=== PATIENT | female | born 1970 | race Caucasian/White ===

== ENCOUNTER → 2016-07-26 | Outpatient (CLI) | payer BC ==
[2016-07-26 20:39] LABS: ALT 42 U/L (9-52); AST 31 U/L (14-36); Alkaline Phosphatase 107 U/L (38-126); Bilirubin, Delta 0.4 mg/dL (0.0-0.2); Total Bilirubin 0.6 mg/dL (0.2-1.3); Total Protein 7.5 g/dL (6.3-8.2)
[2016-07-26 21:10] LABS: Hepatitis B Surface Ag Index 0.16
[2016-07-26 21:16] LABS: Hepatitis B Core IgM Index 0.02
[2016-07-26 21:27] LABS: Hepatitis C Virus IgG Index 0.03
[2016-07-26 21:57] LABS: Prealbumin 17 mg/dL (18-36)
[2016-07-29 13:27] LABS: Hepatitis C Virus IgG Ab Negative (Negative)
[2016-07-29 19:01] LABS: Selenium 130 mcg/L (63-160)
== END | disposition home or self-care (01) ==
LOC: LABMAIN 19:49
PROVIDERS: ATTEND Family Medicine
DX: K76.0 Fatty (change of) liver, not elsewhere classified (principal); Z98.84 Bariatric surgery status
CPT/HCPCS: 36415; 80074; 80076; 82306; 82495; 83690; 84134; 84255; 84590; 84630

== ENCOUNTER → 2016-07-29 | Outpatient (CLI) | payer BC ==
[2016-07-29 12:41] VITALS: BP 117/72; PULSE 70; TEMP 98.3; BMI 31.3
--- NOTE | 2016-09-06 07:08 | PN ---
DATE OF SERVICE: 07/29/2016 CHIEF COMPLAINT: Abdominal pain. HISTORY OF PRESENT ILLNESS: Tori Murphy is a 45-year-old female who has a personal history of Adrian-en-Y gastric bypass at an outside institution over 5+ years ago. For her height of 5 feet 6 inches, her ideal body weight is 154 pounds. Highest weight was 265 pounds. Today she comes in weighing 193 pounds. She has now maintained a 72-pound weight loss. Percent excess weight loss 64%. Body mass index reduced from 42.9 down to 31.3. Since her last evaluation a year ago she has lost another 12 pounds. Total BMI point reduction is 11.6. She also reports having change in her dietary intake including have her thyroid medication under control. She also reports having elevated liver enzymes for which an ultrasound of the gallbladder has been obtained. She also reports having pancreatitis as a result. Now she presents for further evaluation and management. PAST MEDICAL HISTORY: Epigastric abdominal pain. MEDICATIONS: 1. Glucophage. 2. [place] thyroid. 3. Centrum complete. 4. Feosol. 5. Vitamin D. 6. Vitamin B12. 7. Tramadol. 8. [place]. 9. [place]. REVIEW OF ORGAN SYSTEMS: CONSTITUTIONAL: [place] body weight of 154 pounds. Original weight of 265 pounds. Present weight of 193 pounds. 72 pounds of weight loss. A 64% excess weight loss. Body mass index is reduced from 42.9 down to 31.3. She is only 39 pounds overweight. ENDOCRINE: History of diabetes type 2 including thyroid disorder. GASTROINTESTINAL: Has previous history of pancreatitis and elevated liver enzymes. PHYSICAL EXAM: VITAL SIGNS: 98.3, 70, 16, 117/72, 5 feet 6 inches, 193 pounds. Body mass index is 31.3. ABDOMEN: Soft, mild tenderness along the right upper quadrant. No gross peritoneal signs. No palpable incisional hernias. LABS: Hepatitis panel was negative. Total bilirubin was normal. Prealbumin was low at 17. Vitamin A was low at 32. Vitamin D was within normal limits. Selenium and zinc were within normal limits. STUDIES: Pending. ASSESSMENT: 1. Morbid obesity due to excess calories. 2. Body mass index reduced from 42.9 down to 31.3. 3. Previous history of elevated liver enzymes. 4. Right upper quadrant abdominal pain. 5. Previous history of pancreatitis. PLAN: 1. With her symptoms this is highly suspicious of gallstone induced pancreatitis. 2. Recommend ultrasound of the gallbladder. 3. With her history of moderate weight loss including Adrian-en-Y gastric bypass, gallstones is very common as a result of I recommend a laparoscopic cholecystectomy. 4. Deep venous thrombosis prophylaxis. 5. Antibiotic prophylaxis. ADDENDUM: Abdominal ultrasound was reviewed. Gallbladder ultrasound was consistent with mild fatty infiltration. As the patient continues to have persistent symptoms of right upper quadrant abdominal pain including clinical cholecystitis, she has elected for laparoscopic cholecystectomy.
== END | disposition home or self-care (01) ==
LOC: BARWHC3 10:31
PROVIDERS: ATTEND Surgery Plastic and Reconstructive Surgery
DX: R10.11 Right upper quadrant pain (principal); E66.01 Morbid (severe) obesity due to excess calories; Z68.31 Body mass index [BMI] 31.0-31.9, adult; Z79.899 Other long term (current) drug therapy; E11.9 Type 2 diabetes mellitus without complications; E07.9 Disorder of thyroid, unspecified; Z98.84 Bariatric surgery status; Z79.84 Long term (current) use of oral hypoglycemic drugs
CPT/HCPCS: 99211

== ENCOUNTER → 2016-07-29 | Outpatient (CLI) | payer BC ==
--- NOTE | 2016-07-29 14:37 | US ---
EXAMINATION TYPE: US abdomen complete DATE OF EXAM: 07/29/2016 2:29 PM COMPARISON: NONE CLINICAL HISTORY: Fatty Liver K76.0. HH, Gastric bypass surgery 2010 per patient; patient stated has been on ketogenic diet last several weeks. EXAM MEASUREMENTS: Liver Length: 18.8 cm Gallbladder Wall: 0.2 cm CBD: 0.5 cm Spleen: 10.8 cm Right Kidney: 11.5 x 6.5 x 4.3 cm Left Kidney: 12.4 x 5.4 x 5.9 cm Pancreas: wnl, tail is gassed out Liver: coarse and heterogeneous appearance Gallbladder: wnl Evidence for sonographic Farfan's sign: No CBD: wnl Spleen: wnl Right Kidney: wnl Left Kidney: wnl Upper IVC: wnl Abd Aorta: wnl IMPRESSION: 1. Mild fatty infiltration liver
== END | disposition home or self-care (01) ==
LOC: RADUSWWP 13:44
PROVIDERS: ATTEND Family Medicine
DX: K76.0 Fatty (change of) liver, not elsewhere classified (principal)
CPT/HCPCS: 76700

== ENCOUNTER 2016-08-05 10:09 | Day surgery (SDC) | payer BC ==
[2016-08-01 14:35] VITALS: BMI 30.7
--- NOTE | 2016-08-05 08:09 | P.GSHP ---
History of Present Illness H&P Date: 08/05/16 CHIEF COMPLAINT: Cholecystitis HISTORY OF PRESENT ILLNESS: The patient is a 45-year-old female who presents with history of epigastric including right upper quadrant abdominal pain. She underwent diagnostic studies for her gallbladder. Separately her clinical picture was consistent with cholecystitis. Now she presents for surgical intervention. PAST MEDICAL HISTORY: Please see list PAST SURGICAL HISTORY: Please see list MEDICATIONS: Please see list ALLERGIES: Denies. SOCIAL HISTORY: No illicit drug use or recent tobacco use FAMILY HISTORY: Pertinent for gallbladder disease REVIEW OF ORGAN SYSTEMS: CONSTITUTIONAL: No reports of fevers or chills. HEENT: Denies any troubles with the vision or hearing. RESPIRATORY: No recent pneumonias. CARDIOVASCULAR: Denies chest pain or palpitations GI: No blood in stools or constipation. MUSCULOSKELETAL: Has occasional joint pain including back pain. PHYSICAL EXAM: VITAL SIGNS: Afebrile vital signs stable GENERAL: Well-developed pleasant in no acute distress. HEENT: No scleral icterus. Extraocular movements grossly intact. Moist buccal mucosa. NECK: Supple without lymphadenopathy. CHEST: Unlabored respirations. Equal bilateral excursions. CARDIOVASCULAR: Regular rate regular rhythm rhythm. Distal 2+ pulses. ABDOMEN: Soft, nondistended. Tender along the epigastrium and right upper quadrant. MUSCULOSKELETAL: No clubbing, cyanosis, or edema. NEURO: Cranial nerves II to XII within normal limits. No focal or lateralizing signs. PSYCH: Alert and oriented to person, place and time. ASSESSMENT: 1. Epigastric and right upper quadrant abdominal pain 2. Chronic cholecystitis PLAN: 1. Will need cholecystectomy possible open. Benefits and risks were described. Robotic assisted laparoscopic approach technique reviewed. 2. Heparin for DVT prophylaxis 5000 units. 3. Antibiotic prophylaxis. Past Medical History Past Medical History: Diabetes Mellitus, Fibromyalgia, Osteoarthritis (OA), Thyroid Disorder Additional Past Medical History / Comment(s): Some numbness and tingling in fingers/toes and limbs with shooting pains that are relieved with chiropractor visit. Hx intestinal ulcer. History of Any Multi-Drug Resistant Organisms: None Reported Past Surgical History: Bariatric Surgery, Uterine Ablation Additional Past Surgical History / Comment(s): CONSTANTINO-EN-Y, EGD. Past Anesthesia/Blood Transfusion Reactions: No Reported Reaction Past Psychological History: Anxiety, Depression Smoking Status: Former smoker Past Alcohol Use History: Rare Additional Past Alcohol Use History / Comment(s): STARTED SMOKING AT AGE 17 QUIT SMOKING AT AGE 22 SMOKED 3/4 PPD Past Drug Use History: None Reported - Past Family History Father Family Medical History: Congestive Heart Failure (CHF), CVA/TIA, Diabetes Mellitus, Hyperlipidemia, Hypertension, Thyroid Disorder Mother Family Medical History: Coronary Artery Disease (CAD), CVA/TIA, Diabetes Mellitus, Hyperlipidemia, Hypertension, Thyroid Disorder Medications and Allergies Home Medications Medication Instructions Recorded Confirmed Type Multivitamin/Iron/Folic Acid 1 tab PO DAILY 06/10/15 08/01/16 History [Centrum Complete Multivit Tab] Thyroid,Pork [[place] Thyroid] 180 mg PO QAM 06/10/15 08/01/16 History Cyanocobalamin (Vitamin B-12) 5,000 mcg PO DAILY 09/16/15 08/01/16 History [Vitamin B12] Ferrous Sulfate [Feosol] 325 mg PO DAILY 09/16/15 08/01/16 History metFORMIN HCL [Glucophage] 500 mg PO TID 09/16/15 08/01/16 History Doxepin [SINEquan] 10 mg PO HS 08/01/16 08/01/16 History traMADol HCL [Conzip] 100 mg PO DAILY PRN 08/01/16 08/01/16 History Allergies Allergy/AdvReac Type Severity Reaction Status Date / Time No Known Allergies Allergy Verified 08/01/16 14:18
[~2016-08-05 10:09] MED LIST: ACETAMINOPHEN IV (For NPO) 1,000 MG in EMPTY BAG 1 BAG IVPB ONE; DEXAMETHASONE SOD PHOSPHATE 10 MG/ML 1 ML VIAL IV ONE; HEPARIN SODIUM,PORCINE 5,000 UNIT/ML 1 ML VIAL SQ ONE; MIDAZOLAM 2 MG/2 ML VIAL IV PRN; ONDANSETRON 4 MG/2 ML VIAL IVP ONE; SCOPOLAMINE 1.5MG/72HR PATCH TRANSDERM ONE; ceFAZolin 2 GM in SODIUM CHLORIDE 0.9% 100 ML IVPB ONE
[2016-08-05 12:45] LABS: Glucose,Whole Blood 95 mg/dL (75-99)
[2016-08-05] MEDS: LACTATED RINGERS 1,000 ML IV SCH ×2 (13:01→13:03)
[2016-08-05] MEDS ORDERED: BUPIVACAIN-EPI 0.25%-1:200,000 30 ML VIAL SQ ONE (15:14)
[2016-08-05] MEDS ORDERED: MIDAZOLAM 2 MG/2 ML VIAL ONE (15:17)
[2016-08-05] MEDS ORDERED: PROPOFOL 10 MG/ML 20 ML VIAL IV ONE (15:17)
[2016-08-05] MEDS ORDERED: PHENYLEPHRINE-0.9% NACL SYG 1 MG/10 ML SYRINGE ONE (15:17)
[2016-08-05] MEDS ORDERED: GLYCOPYRROLATE 0.2 MG/ML 2 ML VIAL ONE (15:17)
[2016-08-05] MEDS ORDERED: HYDROmorphone (PF) 1 MG/ML ONE (15:17)
[2016-08-05] MEDS ORDERED: SUCCINYLCHOLINE CHLORIDE 100 MG/5 ML SYR IV ONE (15:17)
[2016-08-05] MEDS ORDERED: ROCURONIUM BROMIDE 10 MG/ML 10 ML VIAL IV ONE (15:17)
[2016-08-05] MEDS ORDERED: LIDOCAINE 1% INJ 10MG/ML (20 ML MDV) ONE (15:17)
[2016-08-05] MEDS ORDERED: fentaNYL (PF) 50 MCG/ML 2 ML AMP ONE (15:17)
[2016-08-05] MEDS ORDERED: NEOSTIGMINE 1 MG/ML 10 ML VIAL ONE (15:17)
[2016-08-05] MEDS ORDERED: HYDROcodone/APAP 5-325MG 1 EACH TAB PO PRN (16:49)
[2016-08-05] MEDS ORDERED: NALOXONE 0.4 MG/ML 1 ML VIAL IV PRN (16:49)
[2016-08-05] MEDS ORDERED: ONDANSETRON 4 MG/2 ML VIAL IVP PRN (16:49)
[2016-08-05 17:05] LABS: Glucose,Whole Blood 193 mg/dL (75-99)
[2016-08-05] MEDS ORDERED: ONDANSETRON 4 MG/2 ML VIAL IVP ONE (17:08)
[2016-08-05 17:09] VITALS: TEMP 98.5
[2016-08-05] MEDS: HYDROmorphone 1 MG/ML 1 ML SYRINGE IVP PRN ×2 (17:12→17:17)
[2016-08-05] MEDS ORDERED: KETOROLAC 30 MG/ML 1 ML VIAL IVP ONE (17:21)
[2016-08-05 17:46] VITALS: RESP 16
[2016-08-05 18:35] VITALS: PULSE 74
[2016-08-05] MEDS ORDERED: HYDROcodone/APAP 5-325MG 1 EACH TAB PO ONE (18:41)
--- NOTE | 2016-08-05 18:53 | P.OP ---
Date of Procedure: 08/05/16 Preoperative Diagnosis: Postoperative Diagnosis: Procedure(s) Performed: Implants: Indications for Procedure: Operative Findings: Description of Procedure: SURGEON: LASHAE RIVERA MD ZINC FURNACE CHARGER: 1. Olive Sandoval 2. Mark Lenz PREOPERATIVE DIAGNOSES: 1. Chronic cholecystitis. 2. Diabetes type 2, controlled. 3. History of gastric bypass. 4. Hypothyroidism. 5. Epigastric abdominal pain.. 6. Obesity, BMI 30.7. POSTOPERATIVE DIAGNOSES: 1. Chronic cholecystitis. 2. Diabetes type 2, controlled. 3. History of gastric bypass. 4. Hypothyroidism. 5. Epigastric abdominal pain.. 6. Obesity, BMI 30.7. OPERATION: Robotic-assisted laparoscopic cholecystectomy, multiport ESTIMATED BLOOD LOSS: 1 mL. SPECIMENS REMOVED: Gallbladder. COMPLICATIONS: None. OPERATIVE FINDINGS: 1. Gallbladder wall thickening consistent with chronic cholecystitis. INDICATIONS: The patient is a 45-year-old female who presents with chronic cholelcystitis. Surgical intervention with a laparoscopic cholecystectomy was described at length including injury to the biliary tree, bleeding, infection, need for further surgery. Informed consent was obtained. Robotic assisted laparoscopic approach was described. Benefits and risks of the procedure including but not limited to bleeding, infection, injury to the biliary tree was described. Informed consent was obtained. DESCRIPTION OF PROCEDURE: Patient was brought to the operating room, placed in supine position. After general induction, the abdomen had been prepped and draped in standard sterile fashion. The robotic da Zhang SI system was primed. After a timeout protocol was performed, the patient had been prepped and draped in standard sterile fashion. The robot was docked along the right lateral abdomen. The patient was repositioned in reverse Trendelenburg position. Please note prior to docking of the robot; however, a 5 mm 0 degrees laparoscopic trocar entry was performed along the left upper quadrant. Next, two 8 mm robotic ports were placed along the right upper abdomen. The camera 12-mm port was maintained along the epigastrium. Another 8 mm port was placed along the left upper abdominal wall after exchanging the 5 mm port. Please note that the ports were placed at least 20 cm away from the target anatomy of the gallbladder. Using a grasper for arm 3, a grasper for arm 2, including hook cautery for arm 1 , the robotic system was docked and primed as described. Instruments were interchanged by the certified ophthalmic assistant including hook cautery, Bovie cautery and large clip appliers. I had sat at the console. The gallbladder fundus was retracted over the dome of the liver. Initial attention was brought to the infundibulum which was gently retracted in the inferior lateral approach. Using hook cautery, the cystic duct including the cystic artery was carefully skeletonized. Using a large clip field assembly supervisor, 2 clips were placed proximally, and 2 clip was placed distally along the cystic duct and then divided with cautery. Care was taken to avoid any injury to the biliary tree as the common bile duct was clearly visualized during this portion of dissection. Next, the cystic artery was clipped twice proximally, once distally and then cauterized. Electro-Bovie cautery was used to remove the gallbladder from the hepatic fossa without decompression of the gallbladder. Hemostasis was checked and found to be adequate. The robot was undocked. I re-scrubbed into the case. Using a 10 mm Endo Catch bag via the 12 mm port, the specimen was removed from the abdominal cavity. The 12 mm port site was oversewn using 0 Vicryl including a Mahesh Mueller as well. All pneumoperitoneum instruments were evacuated from the abdominal cavity. The incisions were reapproximated using 4-0 Monocryl in an interrupted subcuticular fashion. Please note along the trocar sites, local anesthetic was placed as a field block prior to insertion of all instruments. Dermabond was applied to the skin. At the end of the procedure needle, sponge, and instrument count had been verified correct by the construction technician. The patient was transferred to postanesthesia care unit in stable condition. Plan - Discharge Summary New Discharge Prescriptions: Hydrocodone/Acetaminophen [[place] 5-325] 1 - 2 each PO Q6HR PRN #60 tab PRN Reason: Pain Discharge Medication List Multivitamin/Iron/Folic Acid [Centrum Complete Multivit Tab] 1 tab PO DAILY [History] Thyroid,Pork [[place] Thyroid] 180 mg PO QAM 06/10/15 [History] Ergocalciferol [Vitamin D2 (DRISDOL)] 50,000 unit PO Q7D #12 cap 06/17/15 [Rx] Cyanocobalamin (Vitamin B-12) [Vitamin B12] 5,000 mcg PO DAILY 09/16/15 [History ] Ferrous Sulfate [Feosol] 325 mg PO DAILY 09/16/15 [History] metFORMIN HCL [Glucophage] 500 mg PO TID 09/16/15 [History] Doxepin [SINEquan] 10 mg PO HS 08/01/16 [History] traMADol HCL [Conzip] 100 mg PO DAILY PRN 08/01/16 [History] Hydrocodone/Acetaminophen [[place] 5-325] 1 - 2 each PO Q6HR PRN #60 tab 08/05/16 [Rx] Follow up Appointment(s)/Referral(s): Lashae Rivera MD [STAFF PHYSICIAN] - 08/12/16 (bariatric center) Patient Instructions/Handouts: *Surgery [facility] - (Anesthesia) Discharge Instructions Outpatient Surgery, *Surgery [facility] - Scopalamine Patch Instructions, Laparoscopic Cholecystectomy (DC) Activity/Diet/Wound Care/Special Instructions: No lifting over 4 lbs in 2 weeks. May shower. No bathtub soaks. Discharge Disposition: HOME SELF-CARE
[2016-08-05 19:24] VITALS: BP 115/63
== END 2016-08-05 19:51 | disposition home or self-care (01) ==
LOC: OR 10:09
PROVIDERS: ATTEND Surgery Plastic and Reconstructive Surgery
DX: K81.1 Chronic cholecystitis (principal); E66.9 Obesity, unspecified; Z68.30 Body mass index [BMI] 30.0-30.9, adult; E11.9 Type 2 diabetes mellitus without complications; Z79.84 Long term (current) use of oral hypoglycemic drugs; Z98.84 Bariatric surgery status; E03.9 Hypothyroidism, unspecified; Z87.891 Personal history of nicotine dependence; M79.7 Fibromyalgia; M19.90 Unspecified osteoarthritis, unspecified site; Z79.899 Other long term (current) drug therapy
CPT/HCPCS: 47562; S2900; 81025; 88304

== ENCOUNTER → 2016-08-11 | Outpatient (CLI) | payer BC ==
[2016-08-11 11:11] VITALS: BP 119/83; PULSE 94; RESP 14; TEMP 98.1; BMI 29.7
--- NOTE | 2016-09-10 18:57 | P.PN ---
Progress Note - Text DATE OF SERVICE: 08/11/2016 CHIEF COMPLAINT: Status post cholecystectomy. HISTORY OF PRESENT ILLNESS: Tori Murphy is a 45-year-old female who has a personal history of Adrian-en-Y gastric bypass at an outside institution over 5+ years ago. For her height of 5 feet 6 inches, her ideal body weight is 154 pounds. Highest weight was 295 pounds. Today she comes in weighing 184 pounds. She has now maintained a 111-pound weight loss. Percent excess weight loss is 79%. Body mass index reduced from 47.7 down to 29.7. Within the last 2 weeks, she presented with epigastric including right upper quadrant abdominal pain. She also has history of elevated liver enzymes and pancreatitis. She is now status post cholecystectomy as a result. She reports that her abdominal pain had improved. She has lost another 10 pounds in 2 weeks. PHYSICAL EXAM: VITAL SIGNS: 5 feet 6 inches, 184 pounds. Body mass index is 29.7. Vital Signs Temp 98.1 F 08/11/16 11:08 Pulse 94 08/11/16 11:08 Resp 14 08/11/16 11:08 BP 119/83 08/11/16 11:08 Pulse Ox ABDOMEN: Soft, incisions clean, dry, and intact with Dermabond. No palpable incisional hernias. GENERAL: Well-developed female in no acute distress. HEENT: Extraocular movements grossly intact. Moist buccal mucosa. No nasal drainage. Hears conversational speech. Head is atraumatic normocephalic. Neck is supple without lymphadenopathy. CHEST: Nonlabored respirations with equal bilateral excursions. CARDIOVASCULAR: Regular rate and rhythm. MUSCULOSKELETAL: No clubbing, cyanosis, or edema. NEURO: No focal or lateralizing signs. PSYCH: Appropriate affect. Alert and oriented to person, place and time. ASSESSMENT: 1. Morbid obesity due to excess caloric intake. 2. Body mass index reduced from 47.7 down to 29.7. 3. Status post Adrian-en-Y gastric bypass. 4. Right upper quadrant abdominal pain, now resolved. 5. Status post cholecystectomy. 6. Panniculitis. PLAN: 1. She is doing well. Follow-up as needed. 2. She has history of panniculitis. Recommend panniculectomy.
== END | disposition home or self-care (01) ==
LOC: BARWHC3 10:25
PROVIDERS: ATTEND Surgery Plastic and Reconstructive Surgery
DX: Z09 Encounter for follow-up examination after completed treatment for conditions other than malignant neoplasm (principal); E66.01 Morbid (severe) obesity due to excess calories; M79.3 Panniculitis, unspecified; Z68.29 Body mass index [BMI] 29.0-29.9, adult; Z98.84 Bariatric surgery status; Z90.49 Acquired absence of other specified parts of digestive tract
CPT/HCPCS: 99211

== ENCOUNTER → 2017-08-23 | Outpatient (CLI) | payer BC ==
--- NOTE | 2017-08-24 13:44 | MM ---
Reason for exam: screening (asymptomatic). History: Patient is postmenopausal. Physical Findings: A clinical breast exam by your physician is recommended on an annual basis and results should be correlated with mammographic findings. MG 3D Screening Mammo W/Cad Bilateral CC and MLO view(s) were taken. The breast tissue is heterogeneously dense. This may lower the sensitivity of mammography. No suspicious abnormality in the right breast. 3mm lateral left asymmetry at middle depth. ASSESSMENT: Incomplete: need additional imaging evaluation, BI-RAD 0 RECOMMENDATION: Special view mammogram and ultrasound of the left breast. (area of pain) [facility] will attempt to contact patient to return for supplemental views and ultrasound.
== END | disposition home or self-care (01) ==
LOC: RADMAMWWP 16:55
PROVIDERS: ATTEND Family Medicine
DX: Z12.31 Encounter for screening mammogram for malignant neoplasm of breast (principal)
CPT/HCPCS: 77063; 77067

== ENCOUNTER → 2017-08-25 | Outpatient (CLI) | payer BC ==
--- NOTE | 2017-08-25 11:50 | MM ---
Reason for exam: additional evaluation requested from abnormal screening. Last mammogram was performed less than 1 month ago. History: Patient is postmenopausal. Physical Findings: Nurse did not find any significant physical abnormalities on exam. MG 3D Work Up W/Cad LT Spot compression CC, spot compression MLO, and ML view(s) were taken of the left breast. Prior study comparison: August 23, 2017, bilateral MG 3d screening mammo w/cad. The breast tissue is heterogeneously dense. This may lower the sensitivity of mammography. The previously seen small 3mm mass upper outer quadrant on the left appears less conspicuous on additional views. Precautionary ultrasound will be done. These results were verbally communicated with the patient and result sheet given to the patient on 08/25/17. ASSESSMENT: Incomplete: need additional imaging evaluation, BI-RAD 0 RECOMMENDATION: Ultrasound of the left breast. (upper outer quadrant/pain)
--- NOTE | 2017-08-25 11:51 | USB ---
Reason for exam: additional evaluation requested from abnormal screening. History: Patient is postmenopausal. US Breast Workup Limited LT Left limited breast ultrasound including focal area of concern, retroareolar and axilla demonstrates a 3 x 2 x 3mm oval, cystic lesion at 2 o'clock and a 7 x 3 x 6mm ova, cystic lesion with septation at 3 o'clock. Corresponds to mammographic findings. These results were verbally communicated with the patient and result sheet given to the patient on 08/25/17. ASSESSMENT: Benign, BI-RAD 2 RECOMMENDATION: Return to routine screening mammogram schedule for both breasts.
== END | disposition home or self-care (01) ==
LOC: RADMAMWWP 09:47
PROVIDERS: ATTEND Family Medicine
DX: R92.8 Other abnormal and inconclusive findings on diagnostic imaging of breast (principal)
CPT/HCPCS: 77061; 77065

== ENCOUNTER → 2018-07-06 | Outpatient (CLI) | payer BC ==
--- NOTE | 2018-07-06 13:39 | CT ---
EXAMINATION TYPE: CT hip RT wo con DATE OF EXAM: 07/06/2018 COMPARISON: None HISTORY: Abnormal findings on diagnostic imaging of limbs CT DLP: 566 mGycm Automated exposure control for dose reduction was used. Unenhanced CT of the right hip was performed with bone and soft tissue window settings submitted. FINDINGS: I do not see evidence for an acute fracture or dislocation. No bony lesion is identified. Well-cortic ated loose body is noted measuring 1 cm adjacent to and superior to the right acetabulum. No addition al loose bodies identified. No evidence for soft tissue mass. Pelvic phleboliths noted. IMPRESSION: LOOSE BODY NOTED. OTHERWISE UNREMARKABLE STUDY.
== END ==
LOC: RADCTMAIN 12:35
PROVIDERS: ATTEND Family Medicine
DX: M24.051 Loose body in right hip (principal)

== ENCOUNTER → 2018-08-24 | Outpatient (CLI) | payer BC ==
--- NOTE | 2018-08-27 11:46 | MM ---
Reason for exam: screening (asymptomatic). Last mammogram was performed 1 year ago. History: Patient is postmenopausal. Physical Findings: A clinical breast exam by your physician is recommended on an annual basis and results should be correlated with mammographic findings. MG 3D Screening Mammo W/Cad Bilateral CC and MLO view(s) were taken. Prior study comparison: August 25, 2017, left breast MG 3d work up w/cad LT. August 23, 2017, bilateral MG 3d screening mammo w/cad. The breast tissue is heterogeneously dense. This may lower the sensitivity of mammography. There are benign appearing round calcifications bilaterally. There is chronic nodularity in the left breast. There is no discrete abnormality. ASSESSMENT: Benign, BI-RAD 2 RECOMMENDATION: Routine screening mammogram of both breasts in 1 year.
== END | disposition home or self-care (01) ==
LOC: RADMAMWWP 12:59
PROVIDERS: ATTEND Family Medicine
DX: Z12.31 Encounter for screening mammogram for malignant neoplasm of breast (principal)
CPT/HCPCS: 77063; 77067

== ENCOUNTER 2020-05-20 18:08 | Emergency (ER) | payer BC ==
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
[2020-05-20 22:24] VITALS: RESP 18
[2020-05-20 22:30] VITALS: BP 152/74; PULSE 98; TEMP 98.4
== END 2020-05-20 22:24 | disposition home or self-care (01) ==
LOC: EC 18:08
DX: S01.81XA Laceration without foreign body of other part of head, initial encounter (principal); F41.9 Anxiety disorder, unspecified; F32.9 Major depressive disorder, single episode, unspecified; E11.9 Type 2 diabetes mellitus without complications; M19.90 Unspecified osteoarthritis, unspecified site; Z79.84 Long term (current) use of oral hypoglycemic drugs; X58.XXXA Exposure to other specified factors, initial encounter
CPT/HCPCS: 70450; 70486; 72125; 99283

== ENCOUNTER → 2021-04-12 | Outpatient (CLI) | payer BC ==
--- NOTE | 2021-04-13 08:27 | MM ---
Reason for exam: screening (asymptomatic). Last mammogram was performed 2 years and 8 months ago. History: Patient is postmenopausal. Physical Findings: Nurse did not find any significant physical abnormalities on exam. MG 3D Screening Mammo W/Cad Bilateral CC and MLO view(s) were taken. Prior study comparison: August 24, 2018, bilateral MG 3d screening mammo w/cad. August 25, 2017, left breast MG 3d work up w/cad LT. The breast tissue is heterogeneously dense. This may lower the sensitivity of mammography. There are benign appearing round calcifications bilaterally. There is no discrete abnormality. ASSESSMENT: Benign, BI-RAD 2 RECOMMENDATION: Routine screening mammogram of both breasts in 1 year.
== END | disposition home or self-care (01) ==
LOC: RADMAMWWP 10:04
PROVIDERS: ATTEND Family Medicine
DX: Z12.31 Encounter for screening mammogram for malignant neoplasm of breast (principal); Z78.0 Asymptomatic menopausal state
CPT/HCPCS: 77063; 77067

== ENCOUNTER → 2021-11-26 | Outpatient (CLI) | payer OTHER, BC ==
[2021-11-26 18:00] LABS: African American GFR (CKD) >90 (>60 ml/min/1.73 sqM); Blood Urea Nitrogen 13 mg/dL (7-17); Non-African American GFR(CKD) >90 (>60 ml/min/1.73 sqM)
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
== END | disposition home or self-care (01) ==
LOC: RADCTMAIN 16:57
PROVIDERS: ATTEND Family Medicine
DX: M50.323 Other cervical disc degeneration at C6-C7 level (principal)
CPT/HCPCS: 82565; 84520; 72125; 70470; 36415; Q9967

== ENCOUNTER → 2022-06-22 | Outpatient (CLI) | payer BC ==
--- NOTE | 2022-06-23 08:41 | MM ---
Reason for Exam: Screening (asymptomatic). Last mammogram was performed 1 year(s) and 3 month(s) ago. Patient History: Menarche at age 14. First Full-Term at age 20. Postmenopausal. Risk Values: [place] 5 year model risk: 0.7%. NCI Lifetime model risk: 6.5%. Prior Study Comparison: 08/25/2017 Left Diagnostic Mammogram, [facility]. 08/24/2018 Bilateral Screening Mammogram, [facility]. 04/12/2021 Bilateral Screening Mammogram, [facility]. Tissue Density: The breast tissue is heterogeneously dense. This may lower the sensitivity of mammography. Findings: Analyzed By CAD. There is no suspicious group of microcalcifications or new suspicious mass in either breast. Overall Assessment: Negative, BI-RAD 1 Management: Screening Mammogram of both breasts in 1 year. A clinical breast exam by your physician is recommended on an annual basis and results should be correlated with mammographic findings. Electronically signed and approved by: Daniel Nichols M.D. Radiologis
== END | disposition home or self-care (01) ==
LOC: RADMAMWWP 16:10
PROVIDERS: ATTEND Obstetrics & Gynecology
DX: Z12.31 Encounter for screening mammogram for malignant neoplasm of breast (principal); Z78.0 Asymptomatic menopausal state
CPT/HCPCS: 77063; 77067

== ENCOUNTER 2022-07-04 22:52 | Emergency (ER) | payer BC ==
[2022-07-04 23:12] VITALS: TEMP 97.6
[2022-07-05 01:07] VITALS: PULSE 78
[2022-07-05 01:22] LABS: Basophils # (A) 0.1 k/uL (0-0.2); Basophils % (A) 1 %; Eosinophils # (A) 0.2 k/uL (0-0.7); Eosinophils % (A) 3 %; HCT 41.5 % (34.0-46.0); HGB 12.9 gm/dL (11.4-16.0); Lymphocytes # (A) 3.7 k/uL (1.0-4.8); Lymphocytes % (A) 46 %; MCH 27.7 pg (25.0-35.0); MCHC 31.1 g/dL (31.0-37.0); MCV 89.1 fL (80.0-100.0); Mean Platelet Volume 10.3; Monocytes # (A) 0.6 k/uL (0-1.0); Monocytes % (A) 8 %; Neutrophils % (A) 38 %; Platelet Count 248 k/uL (150-450); RBC 4.66 m/uL (3.80-5.40); WBC 7.9 k/uL (3.8-10.6)
[2022-07-05 01:30] LABS: ALT 57 U/L (4-34); AST 46 U/L (14-36); African American GFR (CKD) >90 (>60 ml/min/1.73 sqM); Albumin 4.2 g/dL (3.5-5.0); Alkaline Phosphatase 109 U/L (38-126); Anion Gap 5 mmol/L; Blood Urea Nitrogen 11 mg/dL (7-17); Calcium 8.9 mg/dL (8.4-10.2); Carbon Dioxide 30 mmol/L (22-30); Chloride 102 mmol/L (98-107); Glucose 158 mg/dL (74-99); Magnesium 1.9 mg/dL (1.6-2.3); Non-African American GFR(CKD) >90 (>60 ml/min/1.73 sqM); Potassium 4.5 mmol/L (3.5-5.1); Sodium 137 mmol/L (137-145); Total Bilirubin 0.3 mg/dL (0.2-1.3); Total Protein 7.4 g/dL (6.3-8.2)
[2022-07-05 02:49] VITALS: BP 113/78; RESP 14
[2022-07-05 03:11] LABS: Appearance,Urine Clear (Clear); Bilirubin,Urine Negative (Negative); Blood,Urine Negative (Negative); Color,Urine Colorless; Glucose,Urine (UA) Negative (Negative); Ketones,Urine Negative (Negative); Leukocyte Esterase,Urine Negative (Negative); Nitrite,Urine Negative (Negative); PH, Urine 6.5 (5.0-8.0); Protein,Urine Negative (Negative); Specific Gravity,Urine 1.001 (1.001-1.035); Urobilinogen,Urine <2.0 mg/dL (<2.0)
--- NOTE | 2022-07-05 03:32 | ED ---
General Adult HPI - General Chief complaint: Dizziness Stated complaint: Dizziness, Heart Palpitations, HBP Time Seen by Provider: 07/05/22 00:27 Source: patient Mode of arrival: ambulatory Limitations: no limitations - History of Present Illness Initial comments: This patient is a 51-year-old woman who presents with complaint that she is not feeling like her usual self going on for number days to weeks. The patient states she is having some generalized weakness. She states she often feels lightheaded or dizzy , especially when she first gets up from a seated position when she first gets up. He has not noted any focal weakness. She is not desc ribing vertiginous symptoms. There are no symptoms at rest. No chest pain or dyspnea. The patient does note that she has recently tried a number of new [id number] supplements. She states she also has been trying to get into see her physician and have her thyroid rechecked but they've not been able to see her. Onset/Timin -: week(s) Location: head Severity scale (1-10): 0 Consistency: intermittent Improves with: none Worsens with: movement Associated Symptoms: denies other symptoms Treatments Prior to Arrival: none - Related Data Home Medications Medication Instructions Recorded Confirmed Multivitamin/Iron/Folic Acid 1 tab PO DAILY 06/10/15 08/11/16 [Centrum Complete Multivit Tab] Thyroid,Pork [[place] Thyroid] 180 mg PO QAM 06/10/15 08/11/16 Cyanocobalamin (Vitamin B-12) 5,000 mcg PO DAILY 09/16/15 08/11/16 [Vitamin B12] Ferrous Sulfate [Feosol] 325 mg PO DAILY 09/16/15 08/11/16 metFORMIN HCL [Glucophage] 500 mg PO TID 09/16/15 08/11/16 Doxepin [SINEquan] 10 mg PO HS 08/01/16 08/11/16 traMADol HCL [Conzip] 100 mg PO DAILY PRN 08/01/16 08/11/16 Previous Rx's Medication Instructions Recorded Ergocalciferol [Vitamin D2 50,000 unit PO Q7D #12 cap 06/17/15 (DRISDOL)] Hydrocodone/Acetaminophen [[place] 1 - 2 each PO Q6HR PRN #60 tab 08/05/16 5-325] Allergies Allergy/AdvReac Type Severity Reaction Status Date / Time No Known Allergies Allergy Verified 05/20/20 18:17 Review of Systems ROS Statement: Those systems with pertinent positive or pertinent negative responses have been documented in the HPI. ROS Other: All systems not noted in ROS Statement are negative. Constitutional: Reports: weakness. Denies: fever, chills Eyes: Denies: vision change ENT: Denies: ear pain, congestion Respiratory: Denies: cough, dyspnea Cardiovascular: Denies: chest pain, palpitations, syncope Endocrine: Reports: fatigue Gastrointestinal: Denies: abdominal pain, nausea, vomiting Genitourinary: Denies: dysuria, hematuria Musculoskeletal: Denies: back pain Neurological: Denies: headache, weakness, numbness Past Medical History Past Medical History: Diabetes Mellitus, Fibromyalgia, Osteoarthritis (OA), Thyroid Disorder Additional Past Medical History / Comment(s): Some numbness and tingling in fingers/toes and limbs with shooting pains that are relieved with chiropractor visit. Hx intestinal ulcer. History of Any Multi-Drug Resistant Organisms: None Reported Past Surgical History: Bariatric Surgery, Cholecystectomy, Uterine Ablation Additional Past Surgical History / Comment(s): CONSTANTINO-EN-Y, EGD., cholecystectomy 08/05/16, Past Anesthesia/Blood Transfusion Reactions: No Reported Reaction Past Psychological History: Anxiety, Depression Smoking Status: Never smoker Past Alcohol Use History: Rare Past Drug Use History: None Reported - Past Family History Father Family Medical History: Congestive Heart Failure (CHF), CVA/TIA, Diabetes Mellitus, Hyperlipidemia, Hypertension, Thyroid Disorder Mother Family Medical History: Coronary Artery Disease (CAD), CVA/TIA, Diabetes Mellitus, Hyperlipidemia, Hypertension, Thyroid Disorder General Exam Limitations: no limitations General appearance: alert, in no apparent distress Head exam: Present: atraumatic, normocephalic Eye exam: Present: normal appearance. Absent: scleral icterus, conjunctival injection ENT exam: Present: normal oropharynx Neck exam: Present: normal inspection Respiratory exam: Present: normal lung sounds bilaterally. Absent: respiratory distress, wheezes, rales, rhonchi, stridor Cardiovascular Exam: Present: regular rate, normal rhythm, normal heart sounds. Absent: systolic murmur, diastolic murmur, rubs, gallop GI/Abdominal exam: Present: soft. Absent: distended, tenderness, guarding, rebound, rigid, mass Extremities exam: Present: normal inspection, normal capillary refill. Absent: pedal edema, calf tenderness Back exam: Present: normal inspection. Absent: CVA tenderness (R), CVA tenderness (L) Neurological exam: Present: alert, CN II-XII intact. Absent: motor sensory deficit Skin exam: Present: warm, dry, intact, normal color. Absent: rash Course Vital Signs 07/04/22 07/05/22 07/05/22 23:06 00:58 02:49 Temperature 97.6 F Pulse Rate 75 78 Pulse Rate [ 78 Apical] Respiratory 16 14 Rate Blood Pressure 166/79 113/78 O2 Sat by Pulse 100 98 Oximetry Medical Decision Making - Medical Decision Making This patient is 51-year-old woman presenting with some fatigue, generalized weakness, and it sounds mostly like postural hypotension. The workup here is unremarkable other than the patient's TSH level is high and she is therefore directed to follow with her physician and/or endocrinology about increasing thyroid medications. We discussed appropriate further care and follow-up as well as return parameters. Was pt. sent in by a medical professional or institution (, PA, GUN FERTILIZER, urgent care, hospital, or custodial...) When possible be specific @ -[No] Did you speak to anyone other than the patient for history (EMS, parent, family, police, friend...)? What history was obtained from this source @ -[No] Did you review nursing and triage notes (agree or disagree)? Why? @ -[I reviewed and agree with nursing and triage notes] Were old charts reviewed (outside hosp., previous admission, EMS record, old EKG, old radiological studies, urgent care reports/EKG's, custodial records)? Report findings @ -[No old charts were reviewed] Differential Diagnosis (chest pain, altered mental status, abdominal pain women, abdominal pain men, vaginal bleeding, weakness, fever, dyspnea, syncope, h eadache, dizziness, GI bleed, back pain, seizure, CVA, palpatations, mental health, musculoskeletal)? @ -[Differential Dizziness: Benign paroxysmal positional Vertigo, Menieres disease, otitis media, acoustic neuroma, vertebrobasilar insufficiency, cerebellar stroke, encephalitis, hypovolemic, arrhythmia, coronary artery syndrome, anemia, this is not meant to be an all-inclusive list EKG interpreted by me (3pts min.). @ -[As above] X-rays interpreted by me (1pt min.). @ -[ CT interpreted by me (1pt min.). @ -[None done] U/S interpreted by me (1pt. min.). @ -[None done] What testing was considered but not performed or refused? (CT, X-rays, U/S, labs)? Why? @ -[None] What meds were considered but not given or refused? Why? @ -[None] Did you discuss the management of the patient with other professionals (professionals i.e. , PA, GUN FERTILIZER, lab, RT, psych nurse, social worker health services, lumber stacker driver, teacher, consumer loan officer, case management associate)? Give summary @ -[No] Was smoking cessation discussed for >3mins.? @ -[No] Was critical care preformed (if so, how long)? @ -[No] Were there social determinants of health that impacted care today? How? (Homelessness, low income, unemployed, alcoholism, drug addiction, transportation, low edu. Level, literacy, decrease access to med. care, fci, rehab)? @ -[No] Was there de-escalation of care discussed even if they declined (Discuss DNR or withdrawal of care, Hospice)? DNR status @ -[No] What co-morbidities impacted this encounter? (DM, HTN, Smoking, COPD, CAD, Cancer, CVA, ARF, Chemo, Hep., AIDS, mental health diagnosis, sleep apnea, morbid obesity)? @ -[None] Was patient admitted / discharged? Hospital course, mention meds given and route, prescriptions, significant lab abnormalities, going to OR and other pertinent info. @ -[Discharged Undiagnosed new problem with uncertain prognosis? @ -[No] Drug Therapy requiring intensive monitoring for toxicity (Heparin, Nitro, Insulin, Cardizem)? @ -[No] Were any procedures done? @ -[No] Diagnosis/symptom? @ -[Hypothyroidism, suspect acute on chronic Acute, or Chronic, or Acute on Chronic? @ -[default] Uncomplicated (without systemic symptoms) or Complicated (systemic symptoms)? @ -[Uncomplicated Side effects of treatment? @ -[No] Exacerbation, Progression, or Severe Exacerbation? @ -[No] Poses a threat to life or bodily function? How? (Chest pain, [place], [place], pneumonia, PE, COPD, DKA, ARF, appy, cholecystitis, CVA, Diverticulitis, Homicidal, Suicidal, threat to staff... and all critical care pts) @ -[No] - Lab Data Result diagrams: 07/05/22 01:07 07/05/22 01:07 Lab Results 07/05/22 07/05/22 07/05/22 Range/Units 01:07 01:07 01:07 WBC 7.9 (3.8-10.6) k/uL RBC 4.66 (3.80-5.40) m/uL Hgb 12.9 (11.4-16.0) gm/dL Hct 41.5 (34.0-46.0) % MCV 89.1 (80.0-100.0) fL MCH 27.7 (25.0-35.0) pg MCHC 31.1 (31.0-37.0) g/dL RDW 15.0 (11.5-15.5) % Plt Count 248 (150-450) k/uL MPV 10.3 Neutrophils % 38 % Lymphocytes % 46 % Monocytes % 8 % Eosinophils % 3 % Basophils % 1 % Neutrophils # 3.0 (1.3-7.7) k/uL Lymphocytes # 3.7 (1.0-4.8) k/uL Monocytes # 0.6 (0-1.0) k/uL Eosinophils # 0.2 (0-0.7) k/uL Basophils # 0.1 (0-0.2) k/uL Sodium 137 (137-145) mmol/L Potassium 4.5 (3.5-5.1) mmol/L Chloride 102 (98-107) mmol/L Carbon Dioxide 30 (22-30) mmol/L Anion Gap 5 mmol/L BUN 11 (7-17) mg/dL Creatinine 0.47 L (0.52-1.04) mg/dL Est GFR (CKD-EPI)AfAm >90 (>60 ml/min/1.73 sqM) Est GFR (CKD-EPI)NonAf >90 (>60 ml/min/1.73 sqM) Glucose 158 H (74-99) mg/dL POC Glucose (mg/dL) (70-110) mg/dL POC Glu Refractory Tile Helper ID Calcium 8.9 (8.4-10.2) mg/dL Magnesium 1.9 (1.6-2.3) mg/dL Total Bilirubin 0.3 (0.2-1.3) mg/dL AST 46 H (14-36) U/L ALT 57 H (4-34) U/L Alkaline Phosphatase 109 (38-126) U/L Troponin I 0.020 (0.000-0.034) ng/mL Total Protein 7.4 (6.3-8.2) g/dL Albumin 4.2 (3.5-5.0) g/dL TSH 12.600 H (0.465-4.680) mIU/L Urine Color Urine Appearance (Clear) Urine pH (5.0-8.0) Ur Specific [place] (1.001-1.035) Urine Protein (Negative) Urine Glucose (UA) (Negative) Urine Ketones (Negative) Urine Blood (Negative) Urine Nitrite (Negative) Urine Bilirubin (Negative) Urine Urobilinogen (<2.0) mg/dL Ur Leukocyte Esterase (Negative) Urine HCG, Qual (Not Detectd) 07/05/22 07/05/22 07/05/22 Range/Units 02:46 02:46 03:48 WBC (3.8-10.6) k/uL RBC (3.80-5.40) m/uL Hgb (11.4-16.0) gm/dL Hct (34.0-46.0) % MCV (80.0-100.0) fL MCH (25.0-35.0) pg MCHC (31.0-37.0) g/dL RDW (11.5-15.5) % Plt Count (150-450) k/uL MPV Neutrophils % % Lymphocytes % % Monocytes % % Eosinophils % % Basophils % % Neutrophils # (1.3-7.7) k/uL Lymphocytes # (1.0-4.8) k/uL Monocytes # (0-1.0) k/uL Eosinophils # (0-0.7) k/uL Basophils # (0-0.2) k/uL Sodium (137-145) mmol/L Potassium (3.5-5.1) mmol/L Chloride (98-107) mmol/L Carbon Dioxide (22-30) mmol/L Anion Gap mmol/L BUN (7-17) mg/dL Creatinine (0.52-1.04) mg/dL Est GFR (CKD-EPI)AfAm (>60 ml/min/1.73 sqM) Est GFR (CKD-EPI)NonAf (>60 ml/min/1.73 sqM) Glucose (74-99) mg/dL POC Glucose (mg/dL) 81 (70-110) mg/dL POC Glu Refractory Tile Helper ID Karen Stevenson Calcium (8.4-10.2) mg/dL Magnesium (1.6-2.3) mg/dL Total Bilirubin (0.2-1.3) mg/dL AST (14-36) U/L ALT (4-34) U/L Alkaline Phosphatase (38-126) U/L Troponin I (0.000-0.034) ng/mL Total Protein (6.3-8.2) g/dL Albumin (3.5-5.0) g/dL TSH (0.465-4.680) mIU/L Urine Color Colorless Urine Appearance Clear (Clear) Urine pH 6.5 (5.0-8.0) Ur Specific [place] 1.001 (1.001-1.035) Urine Protein Negative (Negative) Urine Glucose (UA) Negative (Negative) Urine Ketones Negative (Negative) Urine Blood Negative (Negative) Urine Nitrite Negative (Negative) Urine Bilirubin Negative (Negative) Urine Urobilinogen <2.0 (<2.0) mg/dL Ur Leukocyte Esterase Negative (Negative) Urine HCG, Qual Not Detected (Not Detectd) Disposition Clinical Impression: Hypothyroid Disposition: HOME SELF-CARE Condition: Good Instructions (If sedation given, give patient instructions): Hypothyroidism (ED) Is patient prescribed a controlled substance at d/c from ED?: No Referrals: Nazanin Del Valle MD [Primary Care Provider] - 1-2 days
[2022-07-05 03:49] LABS: Glucose,Whole Blood 81 mg/dL (70-110)
== END 2022-07-05 03:53 | disposition home or self-care (01) ==
LOC: EC 22:52
DX: E03.9 Hypothyroidism, unspecified (principal); E11.9 Type 2 diabetes mellitus without complications; F32.A Depression, unspecified; F41.9 Anxiety disorder, unspecified; Z79.890 Hormone replacement therapy; Z79.84 Long term (current) use of oral hypoglycemic drugs; Z79.899 Other long term (current) drug therapy
CPT/HCPCS: 36415; 80053; 81003; 81025; 83735; 84443; 84484; 85025; 93005; 99284

== ENCOUNTER → 2022-07-19 | Outpatient (CLI) | payer BC ==
--- NOTE | 2022-07-20 09:37 | CA ---
Transthoracic Echo Report Name: Tori Murphy Age: 51 Gender: F : 1970 Exam Date: 07/19/2022 11:12 Exam Location: [facility] Ht (in): 66 Wt (lb): 169 Ordering Physician: Nazanin Del Valle MD Attending/Referring Phys: Tar Heat Exchanger Cleaner Preethi Joseph RDCS Procedure CPT: Indications: R00.2 palpitations Cardiac Hx: Technical Quality: Fair Contrast 1: Total Dose (mL): Contrast 2: Total Dose (mL): MEASUREMENTS (Male / Female) Normal Values 2D ECHO LV Diastolic Diameter PLAX 3.7 cm 4.2 - 5.9 / 3.9 - 5.3 cm LV Systolic Diameter PLAX 2.2 cm IVS Diastolic Thickness 1.0 cm 0.6 - 1.0 / 0.6 - 0.9 cm LVPW Diastolic Thickness 1.1 cm 0.6 - 1.0 / 0.6 - 0.9 cm LV Relative Wall Thickness 0.5 RV Internal Dim ED PLAX 3.5 cm LA Volume 60.1 cm??? 18 - 58 / 22 - 52 cm??? M-MODE Aortic Root Diameter MM 2.6 cm LA Systolic Diameter MM 3.9 cm LA Ao Ratio MM 1.5 AV Cusp Separation MM 1.9 cm DOPPLER AV Peak Velocity 139.0 cm/s AV Peak Gradient 7.7 mmHg AV Mean Velocity 95.5 cm/s AV Mean Gradient 4.0 mmHg AV Velocity Time Integral 31.6 cm LVOT Peak Velocity 134.3 cm/s LVOT Peak Gradient 7.2 mmHg LVOT Velocity Time Integral 30.9 cm MV Area PHT 3.8 cm??? Mitral E Point Velocity 120.4 cm/s Mitral A Point Velocity 69.0 cm/s Mitral E to A Ratio 1.7 MV Deceleration Time 197.2 ms MV E' Velocity 7.3 cm/s Mitral E to MV E' Ratio 16.4 TR Peak Velocity 218.1 cm/s TR Peak Gradient 19.0 mmHg Right Ventricular Systolic Press 24.0 mmHg FINDINGS Left Ventricle Mildly increased left ventricular wall thickness. Left ventricular cavity size normal. Normal left ventricular systolic function with no obvious regional wall motion abnormalities. Left ventricular ejection fraction is estimated at 55-60 %. Right Ventricle Normal right ventricular size and function. Right ventricular systolic pressure within normal limits. Right Atrium Normal right atrial size. Left Atrium Mildly increased left atrial volume. Mildly increased left atrial area. Mitral Valve Structurally normal mitral valve. No mitral stenosis. Mild mitral regurgitation. Aortic Valve Trileaflet aortic valve. No aortic valve stenosis or regurgitation. Tricuspid Valve Structurally normal tricuspid valve. Mild tricuspid regurgitation. Pulmonic Valve Structurally normal pulmonic valve. Trace pulmonic regurgitation. Pericardium Minimal pericardial effusion (normal variant). Aorta Normal size aortic root and proximal ascending aorta. CONCLUSIONS Mildly increased left ventricular wall thickness Left ventricular ejection fraction 55-60% Mildly dilated left atrium Mild mitral regurgitation Mild tricuspid regurgitation Trace pericardial effusion Previewed by: Dr. Edgar Calix DO (Electronically Signed) Final Date: 20 Jul 2022 09:36
== END | disposition home or self-care (01) ==
LOC: RADECHMAIN 10:01
PROVIDERS: ATTEND Family Medicine
DX: I08.1 Rheumatic disorders of both mitral and tricuspid valves (principal); I31.39 Other pericardial effusion (noninflammatory); R00.2 Palpitations
CPT/HCPCS: 93306

== ENCOUNTER → 2022-07-28 | Outpatient (CLI) | payer BC ==
--- NOTE | 2022-08-16 12:01 | CE ---
CARDIAC ELECTROPHYSIOLOGY REPORT STUDY PERFORMED: 14 days event monitor. FINDINGS: The patient was monitored for 14 days. The baseline rhythm appeared to be sinus mechanism. The patient did have multiple episodes of paroxysmal atrial tachycardia. I could not appreciate any atrial fibrillation or atrial flutter. No advanced AV block noted. No significant bradycardia noted. No sinus pause or sinus arrest. CONCLUSION: 1. This is a 14-day event monitor. 2. The patient did have multiple episodes of paroxysmal atrial tachycardia. MMODL / IJN: [id number] /
== END | disposition home or self-care (01) ==
LOC: RADECHMAIN 12:36
PROVIDERS: ATTEND Family Medicine
DX: I47.1 Supraventricular tachycardia (principal); R00.2 Palpitations
CPT/HCPCS: 93270

== ENCOUNTER → 2022-09-19 | Outpatient (CLI) | payer BC ==
--- NOTE | 2022-09-19 17:05 | CA ---
Transthoracic Echo Report Name: Tori Murphy Age: 51 Gender: F : 1970 Exam Date: 09/19/2022 14:10 Exam Location: [place] [facility] Ht (in): 66 Wt (lb): 167 Ordering Physician: Nazanin Del Valle MD Attending/Referring Phys: Rig Hand Yanique Merlos [facility] Procedure CPT: Indications: I31.39 OTHER PERICARDIAL EFFUSION (NONINFLAMMATORY Cardiac Hx: Technical Quality: Fair Contrast 1: Total Dose (mL): Contrast 2: Total Dose (mL): MEASUREMENTS (Male / Female) Normal Values 2D ECHO LV Diastolic Diameter PLAX 4.1 cm 4.2 - 5.9 / 3.9 - 5.3 cm LV Systolic Diameter PLAX 2.9 cm IVS Diastolic Thickness 0.9 cm 0.6 - 1.0 / 0.6 - 0.9 cm DOPPLER Mitral E Point Velocity 83.1 cm/s Mitral A Point Velocity 60.5 cm/s Mitral E to A Ratio 1.4 MV Deceleration Time 147.1 ms LV E' Lateral Velocity 12.6 cm/s Mitral E to LV E' Lateral Ratio 6.6 LV E' Septal Velocity 12.1 cm/s Mitral E to LV E' Septal Ratio 6.9 Right Atrial Pressure 3.0 mmHg FINDINGS Left Ventricle Normal Left ventricular size, wall thickness, systolic function with no obvious regional wall motion abnormalities. Normal left ventricular diastolic filling pattern. Left ventricular ejection fraction is estimated at 55-60%. Right Ventricle Right Atrium Left Atrium Mitral Valve Structurally normal mitral valve. Trace mitral regurgitation. Aortic Valve Tricuspid Valve Pulmonic Valve Structurally normal pulmonic valve. Moderate pulmonic regurgitation. Pericardium Minimal pericardial effusion (normal variant). Aorta CONCLUSIONS Normal LV systolic function Previewed by: Dr. Adan Wyman MD (Electronically Signed) Final Date: 19 September 2022 17:04
== END | disposition home or self-care (01) ==
LOC: RADECHMAIN 13:56
PROVIDERS: ATTEND Family Medicine
DX: I34.0 Nonrheumatic mitral (valve) insufficiency (principal); I37.1 Nonrheumatic pulmonary valve insufficiency; I31.39 Other pericardial effusion (noninflammatory)
CPT/HCPCS: 93308

== ENCOUNTER 2023-07-20 09:34 | Day surgery (SDC) | payer BC ==
[2023-07-17 16:51] VITALS: BMI 29.0
[2023-07-20 10:15] LABS: Glucose,Whole Blood 108 mg/dL (70-110)
[2023-07-20] MEDS ORDERED: LACTATED RINGERS 1,000 ML IV SCH (10:15)
[2023-07-20 10:40] VITALS: TEMP 98.2
[2023-07-20] MEDS ORDERED: ROPIVACAINE 5MG/ML 20ML VIAL ONE (10:44)
[2023-07-20] MEDS ORDERED: IOPAMIDOL M200 10 ML VIAL ONE (10:44)
[2023-07-20] MEDS ORDERED: TRIAMCINOLONE ACETONIDE 40 MG/ML 1 ML VIAL ONE (10:44)
--- NOTE | 2023-07-20 10:51 | P.PCN ---
Date of Procedure: 07/20/23 Description of Procedure: Preoperative diagnoses: 1. Right hip osteoarthritis Postoperative diagnoses: 1. Right hip osteoporosis Procedure: Right hip intra-articular steroid injection with fluoroscopy Anesthesia: 3ml 1% Lidocaine Description of the procedure: Patient was seen and identified in the preoperative holding area, risk and benefits, complications ,and alternatives of the procedure were discussed with the patient and patient agreed with the preceding, patient signed the consent and IV was started and vital signs were monitored throughout the procedure and it was stable. The patient was taken to the operating room and placed in supine position the groin area was prepped with chlorhexidine 3 and draped with the standard fashion. Local anesthetic was used with lidocaine 1% then using 25 -gauge needle, under direct fluoroscopy and anterior posterior image of the hip joint was ascertained. A 22-gauge Quincke needle was then advanced to the femoral neck until contact with bone was made. After negative aspiration for blood, 1 mL of Omnipaque was then injected to confirm placement of needle into the joint capsule. Once correct position was confirmed and after negative aspiration for blood, a solution consisting of 5 ML's of 0.5% Ropivacaine with 40 mg/1 mL of Kenalog was administered. A washout image was then obtained to confirm adequate spread within the joint capsule. Needle was removed, and a Band-Aid was placed. Patient tolerated procedure well with no complications Disposition: We'll see patient in clinic in 4 weeks' time to assess efficacy of right hip injection as her source of right leg pain
--- NOTE | 2023-07-20 10:57 | FL ---
EXAMINATION TYPE: FL guided pain mgmt statistic Intraoperative/procedural fluoroscopic services were provided. Total fluoroscopy time is 3.4 seconds with a total of 2 submitted images to PACS. Please se e the operative/procedural note for further details. DAP: [id number] mGym2
[2023-07-20 11:25] VITALS: BP 132/83; PULSE 78; RESP 18
== END 2023-07-20 11:09 | disposition home or self-care (01) ==
LOC: ORPAIN 09:34
PROVIDERS: ATTEND Anesthesiology
DX: M16.11 Unilateral primary osteoarthritis, right hip (principal); E11.9 Type 2 diabetes mellitus without complications; Z79.1 Long term (current) use of non-steroidal anti-inflammatories (NSAID)
CPT/HCPCS: 81025; 20610; 77002; J3301; Q9966; J2795

== ENCOUNTER → 2024-01-22 | Outpatient (CLI) | payer BC ==
--- NOTE | 2024-01-24 22:39 | US ---
EXAMINATION TYPE: US thyroid st tissue head/neck DATE OF EXAM: 01/22/2024 COMPARISON: NONE CLINICAL INDICATION: Female, 53 years old with history of E03.9 HYPOTHYROIDISM; hypothyroidism. Pt jimenez s been on thyroid medication for years TECHNIQUE: Grayscale and color Doppler imaging of the thyroid gland. FINDINGS: GLAND SIZE: Right Lobe: 3.3 x 0.9 x 0.7 cm Overall Parenchyma: homogeneous Left Lobe: 2.8 x 1.0 x 0.5 cm Overall Parenchyma: homogeneous Isthmus Thickness: 0.1 cm NODULES RIGHT: # of nodules measured on right: 0 LEFT: # of nodules measured on left: 0 ISTHMUS: # of nodules measured in the isthmus: 0 Bilateral neck scanned, no evidence of lymphadenopathy. IMPRESSION: Suspicious thyroid nodules. 2017 ACR TI-RADS LEVEL: TR-RADS 1 - BENIGN: No FNA *Highest TI-RADS level nodule reported [email or web address] [facility], , 01/24/2024 10:37 PM
== END | disposition home or self-care (01) ==
LOC: RADUSWWP 15:22
PROVIDERS: ATTEND Family Medicine
DX: E03.9 Hypothyroidism, unspecified (principal)
CPT/HCPCS: 76536

== ENCOUNTER → 2024-01-31 | Outpatient (CLI) | payer BC ==
[2024-01-31 17:19] VITALS: BP 122/73; PULSE 75; RESP 16; TEMP 98.2
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
== END ==
LOC: BARWHC3 16:08
PROVIDERS: ATTEND Surgery Plastic and Reconstructive Surgery
DX: E66.01 Morbid (severe) obesity due to excess calories (principal); Z87.891 Personal history of nicotine dependence; Z98.84 Bariatric surgery status; Z68.22 Body mass index [BMI] 22.0-22.9, adult
CPT/HCPCS: 99211

== ENCOUNTER → 2024-02-27 | Outpatient (CLI) | payer BC ==
[2024-02-28 01:44] LABS: HCT 43.9 % (37.2-46.3); HGB 13.6 g/dL (12.0-15.0); MCH 27.7 pg (27.0-32.0); MCV 89.4 FL (80.0-97.0); Mean Platelet Volume 13.2 FL (9.5-12.2); NRBC Per 100 WBC 0 X 10*3/uL (0.00-0.01); Platelet Count 313 X 10*3/uL (140-440); RBC 4.91 X 10*6/uL (4.10-5.20); RDW 14.3 % (11.5-14.5); WBC 8.23 X 10*3/uL (4.50-10.00)
[2024-02-28 02:28] LABS: INR 0.99 sec (0.93-1.11); Prothrombin Time 11.1 sec (9.9-11.9)
[2024-02-28 02:54] LABS: Prealbumin 19.4 mg/dL (18.0-42.0)
[2024-02-28 03:28] LABS: % Iron Saturation 21.26 (12.00-45.00); ALT 55 U/L (8-44); AST 70 U/L (13-35); Albumin 4.5 g/dL (3.8-4.9); Albumin/Globulin Ratio 1.61 Ratio (1.60-3.17); Alkaline Phosphatase 136 U/L (41-126); Blood Urea Nitrogen 14.4 mg/dL (9.0-27.0); Calcium 9.6 mg/dL (8.7-10.3); Carbon Dioxide 26.2 mmol/L (21.6-31.8); Chloride 101 mmol/L (96-109); Chol/HDL Ratio 2.37 Ratio; Ferritin 30.6 ng/mL (10.0-291.0); Globulin 2.8 g/dL (1.6-3.3); Glucose 94 mg/dL (70-110); Iron 108 UG/DL (50-170); LDL Cholesterol,Calculated 99.6 mg/dL (0.0-131.0); Phosphorus 4.4 mg/dL (2.4-5.1); Potassium 4.9 mmol/L (3.5-5.5); Sodium 141 mmol/L (135-145); Total Bilirubin 0.4 mg/dL (0.3-1.2); Total Iron Binding Capacity 508 UG/DL (228-460); Total Protein 7.3 g/dL (6.2-8.2); VLDL Calculation 14.96 mg/dL (5.00-40.00)
[2024-02-28 13:39] LABS: Vitamin A 46 ug/dL (38-106)
[2024-02-28 15:15] LABS: Zinc, Serum 103 ug/dL (60-130)
[2024-02-29 08:05] LABS: Vit B1(Thiamine) 63 ug/L (38-122)
== END | disposition home or self-care (01) ==
LOC: LABWHC1 16:01
PROVIDERS: ATTEND Surgery Plastic and Reconstructive Surgery
DX: E66.01 Morbid (severe) obesity due to excess calories (principal); E89.1 Postprocedural hypoinsulinemia; D50.8 Other iron deficiency anemias; K91.2 Postsurgical malabsorption, not elsewhere classified; E44.0 Moderate protein-calorie malnutrition; E44.1 Mild protein-calorie malnutrition; E45 Retarded development following protein-calorie malnutrition; E55.9 Vitamin D deficiency, unspecified; K74.1 Hepatic sclerosis; N19 Unspecified kidney failure; T56.894A Toxic effect of other metals, undetermined, initial encounter
CPT/HCPCS: 36415; 80053; 80061; 82306; 82525; 82607; 82728; 82746; 83036; 83540; 83550; 83735; 83970; 84100; 84134; 84255; 84425; 84443; 84590; 84630; 85027; 85610; 85730

== ENCOUNTER → 2024-02-27 | Outpatient (CLI) | payer BC ==
--- NOTE | 2024-02-29 08:38 | MM ---
Reason for Exam: Screening (asymptomatic). Last mammogram was performed 1 year(s) and 8 month(s) ago. Patient History: Menarche at age 14. First Full-Term at age 20. Postmenopausal. Risk Values: Shaina 5 year model risk: 0.8%. NCI Lifetime model risk: 6.3%. Prior Study Comparison: 08/24/2018 Bilateral Screening Mammogram, [facility]. 04/12/2021 Bilateral Screening Mammogram, [facility]. 06/22/2022 Bilateral MG 3D screening mammo w/cad, [facility]. Tissue Density: The breasts are heterogeneously dense, which may obscure small masses. Findings: Analyzed By CAD. There is no suspicious group of microcalcifications or new suspicious mass in either breast. Overall Assessment: Benign, BI-RAD 2 Management: Screening Mammogram of both breasts in 1 year. . Patient should continue monthly self-breast exams. A clinical breast exam by your physician is recommended on an annual basis. This exam should not preclude additional follow-up of suspicious palpable abnormalities. Note on Shaina scores and lifetime risk: 1. A Shaina score greater than 3% is considered moderate risk. If this is the case, consider specialist referral to assess eligibility for a risk reducing agent. 2. If overall lifetime risk for the development of breast cancer is 20% or higher, the patient may qualify for future screening with alternating mammogram and breast MRI. [facility], , 02/29/2024 8:36 AM. Electronically signed and approved by: Daniel Nichols M.D. Radiologis
== END | disposition home or self-care (01) ==
LOC: RADMAMWWP 15:36
PROVIDERS: ATTEND Family Medicine
DX: Z12.31 Encounter for screening mammogram for malignant neoplasm of breast (principal); R92.333 Mammographic heterogeneous density, bilateral breasts; Z78.0 Asymptomatic menopausal state
CPT/HCPCS: 77063; 77067

== ENCOUNTER → 2024-03-15 | Outpatient (CLI) | payer BC | END | disposition home or self-care (01) | LOC: LABWHC1 14:41 | PROVIDERS: ATTEND Surgery Plastic and Reconstructive Surgery | DX: Z00.00 Encounter for general adult medical examination without abnormal findings (principal) | CPT/HCPCS: 36415; 85730 ==

== ENCOUNTER 2024-05-30 16:43 | Emergency (ER) | payer BC ==
--- NOTE | 2024-05-30 17:45 | XR ---
EXAMINATION TYPE: XR chest 2V DATE OF EXAM: 05/30/2024 5:40 PM COMPARISON: None. CLINICAL INDICATION: Female, 53 years old with history of Cough: Shortness of breath TECHNIQUE: XR chest 2V views of the chest are obtained. FINDINGS: Scattered senescent parenchymal changes noted. Hyperinflation compatible with COPD. No evidence for infiltrate. No evidence for atelectasis. Heart size is stable. Mediastinal structures are stable and grossly unremarkable. No evidence for hilar prominence. Degenerative changes dorsal spine. IMPRESSION: 1. No evidence for acute pulmonary disease. [facility], , 05/30/2024 5:42 PM
[2024-05-30 18:35] LABS: HCT 40.1 % (34.0-46.0); HGB 12.9 gm/dL (11.4-16.0); MCH 27.7 pg (25.0-35.0); MCHC 32.3 g/dL (31.0-37.0); MCV 85.9 fL (80.0-100.0); Platelet Count 197 k/uL (150-450); RBC 4.67 m/uL (3.80-5.40); RDW 14.3 % (11.5-15.5); WBC 3.4 k/uL (3.8-10.6)
[2024-05-30] MEDS: IBUPROFEN 800 MG TAB PO STA (18:48)
[2024-05-30 18:50] LABS: ALT 70 U/L (4-34); AST 87 U/L (14-36); African American GFR (CKD) >90 (>60 ml/min/1.73 sqM); Albumin 4.1 g/dL (3.5-5.0); Alkaline Phosphatase 96 U/L (38-126); Amylase 76 U/L (30-110); Anion Gap 11 mmol/L; Blood Urea Nitrogen 9 mg/dL (7-17); Calcium 8.3 mg/dL (8.4-10.2); Carbon Dioxide 26 mmol/L (22-30); Chloride 101 mmol/L (98-107); Glucose 110 mg/dL (74-99); Lipase 163 U/L (23-300); Non-African American GFR(CKD) >90 (>60 ml/min/1.73 sqM); Potassium 3.8 mmol/L (3.5-5.1); Sodium 138 mmol/L (137-145); Total Bilirubin 0.5 mg/dL (0.2-1.3)
[2024-05-30] MEDS: ACETAMINOPHEN TAB 500 MG TAB PO STA (18:52)
[2024-05-30] MEDS: SODIUM CHLORIDE 0.9% 1,000 ML IV ONE (18:53)
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
[2024-05-30 19:02] LABS: Appearance,Urine Clear (Clear); Bilirubin,Urine Negative (Negative); Blood,Urine Negative (Negative); Color,Urine Colorless; Glucose,Urine (UA) Negative (Negative); Ketones,Urine Negative (Negative); Leukocyte Esterase,Urine Negative (Negative); Nitrite,Urine Negative (Negative); Protein,Urine Negative (Negative); Specific Gravity,Urine 1.002 (1.001-1.035); Urobilinogen,Urine <2.0 mg/dL (<2.0)
[2024-05-30 19:08] LABS: Influenza A Detected (Not Detectd); Influenza B Not Detected (Not Detectd); RSV Not Detected (Not Detectd)
[2024-05-30 19:40] LABS: Lymphocytes # (M) 0.99 k/uL (1.0-4.8); Monocytes # (M) 0.31 k/uL (0-1.0); Neutrophils # (M) 2.11 k/uL (1.3-7.7); Neutrophils % (M) 62 %; Nucleated Red Blood Cells 0 /100 WBC (0-0); RBC Morphology Normal; Total Cells Counted 100
[2024-05-30 19:45] VITALS: RESP 19
[2024-05-30] MEDS ORDERED: IBUPROFEN IV 400 MG in SODIUM CHLORIDE 0.9% 100 ML IV ONE (19:45)
[2024-05-30] MEDS: IBUPROFEN IV 400 MG in SODIUM CHLORIDE 0.9% 250 ML IV ONE (20:21)
--- NOTE | 2024-05-30 21:45 | CT ---
EXAMINATION TYPE: CT abdomen pelvis wo con DATE OF EXAM: 05/30/2024 9:36 PM COMPARISON: 07/05/2025 CLINICAL INDICATION: Female, 53 years old with history of Abdominal pain, acute, nonlocalized, ABD PA IN TECHNIQUE: Axial images with sagittal coronal reformats. Examination of the solid and hollow viscera is limited given the lack of contrast. CT DLP: 635 mGycm, Automated exposure control for dose reduction was used. FINDINGS: LUNG BASES: No evidence for nodule. No evidence for infiltrate. LIVER/GB: The gallbladder is surgically absent. No space-occupying hepatic lesion. PANCREAS: No pancreatic mass identified. No inflammatory process seen. SPLEEN: No evidence for splenomegaly. No intrasplenic lesions seen. ADRENALS: No adrenal nodules identified. No evidence for thickening. KIDNEYS: No evidence for renal mass. No nephrolithiasis. No hydronephrosis. BOWEL: Postoperative changes of gastric sleeve. Appendix has a normal appearance. No evidence of francoise l obstruction. No inflammatory process. Lymph nodes: No evidence for adenopathy greater than 1 cm. Abdominal aorta: Atheromatous changes seen. No evidence for aneurysm. Genital organs: Uterus and ovaries are unremarkable. Small amount of free fluid within the cul-de-sac . Other: No significant abnormality. IMPRESSION: NO ACUTE PROCESS SEEN TO ACCOUNT FOR THE PATIENT'S SYMPTOMS. SMALL AMOUNT OF FREE FLUID WITHIN THE CU L-DE-SAC. [facility], , 05/30/2024 9:42 PM
[2024-05-30 22:23] VITALS: BP 120/82; PULSE 82; TEMP 98.8
== END 2024-05-30 22:23 | disposition home or self-care (01) ==
LOC: EC 16:43
DX: J10.1 Influenza due to other identified influenza virus with other respiratory manifestations (principal); R10.10 Upper abdominal pain, unspecified; D72.819 Decreased white blood cell count, unspecified; R79.89 Other specified abnormal findings of blood chemistry; E11.9 Type 2 diabetes mellitus without complications; I10 Essential (primary) hypertension; E78.5 Hyperlipidemia, unspecified; Z79.890 Hormone replacement therapy; Z79.899 Other long term (current) drug therapy; Z87.891 Personal history of nicotine dependence
CPT/HCPCS: 36415; 80053; 82150; 83690; 85025; 81003; 87636; 71046; 74176; 99284; 96365; 96361; J1741

== ENCOUNTER → 2024-06-05 | Outpatient (CLI) | payer BC ==
[2024-06-05 14:44] VITALS: BP 157/95; PULSE 76; RESP 16; TEMP 98.4; BMI 22.2
--- NOTE | 2024-06-05 15:07 | P.BASOAP ---
Subjective Progress Note Date: 06/05/24 She has elevated liver enzymes. She leaves in July and returns in Nov 14. She wants arm problems. Needs plastic surgeon referral. Has not had liver ultrasound. Needs liver us. She weaned off her medications. She saw suspender cutter. She drinks 64 oz of fluids. Go for 100 oz of water daily or 6x 16 oz water bottles. Colonoscopy advised for change in bowel habits. Objective - Vital Signs Vital signs: Vital Signs Temp 98.4 F 06/05/24 14:36 Pulse 76 06/05/24 14:36 Resp 16 06/05/24 14:36 BP 157/95 06/05/24 14:36 Pulse Ox FiO2 Intake & Output 06/04/24 06/05/24 06/05/24 18:59 06:59 18:59 Weight 62.596 kg Assessment/Plan Plan: Date: 06/05/24 Initial Weight: 96.434 kg Initial BMI: 34.3 Current Weight: 62.596 kg Current BMI: 22.2 Type of Surgery: Total Volume in Band: Previous Volume: Volume Removed: Volume Added: Band Size:
== END ==
LOC: BARWHC3 14:09
PROVIDERS: ATTEND Surgery Plastic and Reconstructive Surgery
DX: E66.01 Morbid (severe) obesity due to excess calories (principal); Z68.22 Body mass index [BMI] 22.0-22.9, adult; Z87.891 Personal history of nicotine dependence
CPT/HCPCS: 99211

== ENCOUNTER → 2024-06-25 | Outpatient (CLI) | payer BC ==
--- NOTE | 2024-06-25 08:39 | US ---
EXAMINATION TYPE: US carotid duplex BILAT DATE OF EXAM: 06/25/2024 COMPARISON: NONE CLINICAL INDICATION: Female, 53 years old with history of I65.29 OCCLUSION AND STENOSIS; family histo ry of carotid stenosis. Dizziness. TECHNIQUE: Grayscale, color Doppler and spectral Doppler evaluation of the bilateral carotid systems and vertebral arteries. Indirect Doppler criteria was utilized. FINDINGS: EXAM MEASUREMENTS: RIGHT: Peak Systolic Velocity (PSV) cm/sec ----- Right CCA: 85.4 ----- Right ICA: 117.3 ----- Right ECA: 95.3 ICA/CCA ratio: 1.4 RIGHT: End Diastole cm/sec ----- Right CCA: 31.2 ----- Right ICA: 52.5 ----- Right ECA: 9.8 LEFT: Peak Systolic Velocity (PSV) cm/sec ----- Left CCA: 66.7 ----- Left ICA: 92.7 ----- Left ECA: 66.8 ICA/CCA ratio: 1.4 LEFT: End Diastole cm/sec ----- Left CCA: 30.4 ----- Left ICA: 36.9 ----- Left ECA: 11.0 VERTEBRALS (direction of flow): Right Vertebral: Antegrade Left Vertebral: Antegrade Rhythm: Normal CUTTER OPERATOR BRICK NOTES: No elevated velocities Color Doppler imaging shows patency with blood flow throughout the carotid artery. Spectral waveforms are within normal limits. IMPRESSION: No hemodynamically significant internal carotid artery stenosis on either side. Criteria for Assigning % of Stenosis / Diameter reduction (Estimation based on the indirect measurements of the internal carotid artery velocities (ICA PSV). 1. Normal (no stenosis)=ICA PSV < 180 cm/s: ratio < 2.0: ICA EDV<40 cm/s. 2. Less than 50% stenosis=ICA PSV < 180 cm/s: ratio < 2.0: ICA EDV<40 cm/s. 3. 50 to 69% stenosis=ICA PSV of 180 to 230 cm/s: ration 2.0 ? 4.0: ICA EDV 40-100 cm/s. PSV 125-180 cm/sec and ICA/CCA PSV Ratio ? 2.0 is also consistent with 50-69% stenosis 4. Greater than 70% stenosis to near occlusion= ICA PSV > 230 cm/s: ratio > 4.0: ICA EDV > 100 cm/s. 5. Near occlusion= ICA PSV velocities may be low or undetectable: variable ratio and ICA EDV. 6. Total occlusion=unable to detect flow. [facility], , 06/25/2024 8:36 AM
== END | disposition home or self-care (01) ==
LOC: RADUSWWP 07:48
PROVIDERS: ATTEND Family Medicine
DX: I65.23 Occlusion and stenosis of bilateral carotid arteries (principal)
CPT/HCPCS: 93880

== ENCOUNTER → 2024-07-04 | Outpatient (CLI) | payer BC ==
--- NOTE | 2024-07-04 07:41 | US ---
EXAMINATION TYPE: US liver DATE OF EXAM: 07/04/2024 COMPARISON: CT 2024, US 2016 CLINICAL INDICATION: Female, 53 years old with history of R94.5 ABN LFT; TECHNIQUE: Grayscale and color Doppler imaging of the right upper quadrant was performed. FINDINGS: EXAM MEASUREMENTS: Liver Length: 16.9 cm. Normal <15.5 cm. CBD: 0.6 cm Right Kidney: 10.6 x 4.3 x 5.6 cm Pancreas: visualized portions wnl, tail limited by overlying midline bowel gas Liver: wnl Gallbladder: surgically absent Evidence for sonographic Farfan's sign: no CBD: wnl Right Kidney: wnl IMPRESSION: 1. Mild hepatomegaly [facility], , 07/04/2024 7:38 AM
== END | disposition home or self-care (01) ==
LOC: RADUSWWP 07:08
PROVIDERS: ATTEND Surgery Plastic and Reconstructive Surgery
DX: R16.0 Hepatomegaly, not elsewhere classified (principal); R94.5 Abnormal results of liver function studies
CPT/HCPCS: 76705

== ENCOUNTER → 2024-07-06 | Outpatient (CLI) | payer BC ==
[2024-07-06 12:17] LABS: INR 0.9 (<1.2); Partial Thromboplastin Time 23.7 sec (22.0-30.0); Prothrombin Time 10.5 sec (10.0-12.5)
[2024-07-07 06:11] LABS: Cryptosporidium Antigen Negative (Negative)
[2024-07-07 06:27] LABS: Basophils # (A) 0.06 X 10*3/uL (0.00-0.10); Basophils % (A) 0.8 %; Eosinophils # (A) 0.12 X 10*3/uL (0.04-0.35); Eosinophils % (A) 1.7 %; HCT 42.3 % (37.2-46.3); HGB 13.1 g/dL (12.0-15.0); Lymphocytes # (A) 2.42 X 10*3/uL (0.90-5.00); Lymphocytes % (A) 33.8 %; MCH 27.1 pg (27.0-32.0); MCV 87.4 FL (80.0-97.0); Mean Platelet Volume 12.4 FL (9.5-12.2); Monocytes # (A) 0.41 X 10*3/uL (0.20-1.00); Monocytes % (A) 5.7 %; NRBC Per 100 WBC 0 X 10*3/uL (0.00-0.01); Neutrophils # (A) 4.13 X 10*3/uL (1.80-7.70); Neutrophils % (A) 57.7 %; Platelet Count 281 X 10*3/uL (140-440); RBC 4.84 X 10*6/uL (4.10-5.20); RDW 15.1 % (11.5-14.5); WBC 7.16 X 10*3/uL (4.50-10.00)
[2024-07-07 09:22] LABS: ALT 61 U/L (8-44); AST 51 U/L (13-35); Albumin 4.5 g/dL (3.8-4.9); Albumin/Globulin Ratio 1.55 Ratio (1.60-3.17); Alkaline Phosphatase 105 U/L (41-126); BUN/Creat Ratio 23.67 Ratio (12.00-20.00); Blood Urea Nitrogen 14.2 mg/dL (9.0-27.0); Calcium 9.3 mg/dL (8.7-10.3); Carbon Dioxide 21.5 mmol/L (21.6-31.8); Chloride 103 mmol/L (96-109); Globulin 2.9 g/dL (1.6-3.3); Glucose 110 mg/dL (70-110); Phosphorus 3.5 mg/dL (2.4-5.1); Sodium 140 mmol/L (135-145); T4, Free (Free Thyroxine) 0.88 ng/dL (0.80-1.80); Total Bilirubin 0.3 mg/dL (0.3-1.2); Total Protein 7.4 g/dL (6.2-8.2)
[2024-07-07 10:21] LABS: % Iron Saturation 16.99 (12.00-45.00); Ferritin 26.3 ng/mL (10.0-291.0); Iron 87 UG/DL (50-170); Total Iron Binding Capacity 512 UG/DL (228-460)
[2024-07-07 13:32] LABS: Hepatitis A Antibody IgM Nonreactive (Nonreactive); Hepatitis B Core IgM Nonreactive (Nonreactive); Hepatitis B Surface Antigen Nonreactive (Nonreactive); Hepatitis C IgG Antibody Nonreactive (Nonreactive)
[2024-07-08 14:50] LABS: Zinc, Serum 73 ug/dL (60-130)
== END | disposition home or self-care (01) ==
LOC: LABWHC1 11:04
PROVIDERS: ATTEND Surgery Plastic and Reconstructive Surgery
DX: E88.2 Lipomatosis, not elsewhere classified (principal); E11.65 Type 2 diabetes mellitus with hyperglycemia; R19.5 Other fecal abnormalities; R74.01 Elevation of levels of liver transaminase levels
CPT/HCPCS: 36415; 80053; 80074; 82306; 82525; 82607; 82728; 82746; 83036; 83540; 83550; 83735; 83970; 84100; 84134; 84255; 84425; 84439; 84443; 84590; 84630; 85025; 85610; 85730; 87328; 87329

== ENCOUNTER 2024-07-15 07:51 | Day surgery (SDC) | payer BC ==
[2024-07-15 08:13] VITALS: TEMP 98.4
[2024-07-15] MEDS: LACTATED RINGERS 1,000 ML IV ONE (08:13)
[2024-07-15] MEDS: LACTATED RINGERS 1,000 ML IV SCH (08:18)
[2024-07-15 08:23] LABS: Glucose,Whole Blood 93 mg/dL (70-110)
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
[2024-07-15] MEDS ORDERED: PROPOFOL 10 MG/ML 20 ML VIAL IV ONE (08:35)
--- NOTE | 2024-07-15 09:09 | P.PCN ---
Date of Procedure: 07/15/24 Description of Procedure: PREOPERATIVE DIAGNOSIS: Colonoscopy screening POSTOPERATIVE DIAGNOSIS: Microscopic colitis OPERATION: Colonoscopy to the cecum, ileocecal valve and appendiceal orifice. Colonoscopy with random cold forceps biopsies for microscopic colitis SURGEON: Zofia Guerrero MD. ANESTHESIA: MAC. INDICATIONS: The patient is a 53-year-old female who presents for first colonic screening. Benefits and risks were described and informed consent was obtained. DESCRIPTION OF PROCEDURE: The patient had undergone Suprep. The patient had been brought into the operating room and laid in the left lateral decubitus position. After adequate intravenous sedation, the rectum was examined with 2% lidocaine jelly. External hemorrhoids were encountered. The rectal tone was within normal limits. No lesions were palpated in the rectal vault. An Olympus colonoscope was advanced until the cecum, ileocecal valve and appendiceal orifice were clearly viewed. The prep was fair. No scattered diverticulosis was encountered. No colonic polyps were found. Cold forceps biopsies randomly were obtained for microscopic colitis. Retroflexion of the scope demonstrated grade 1 internal hemorrhoids without active bleeding or inflammation. The colon was desufflated. The patient had tolerated the procedure well. Withdrawal time was over 6 minutes. FINDINGS: Aronchick preparation quality scale 3 (1-5) Internal hemorrhoids, grade 1 External prolapsed hemorrhoids, grade 2 No arteriovenous malformations. No adenomatous polyps. Cold forceps biopsies obtained for microscopic colitis RECOMMENDATIONS: Repeat colonoscopy 5 years2029 Plan - Discharge Summary Discharge Rx Participant: No New Discharge Prescriptions: Continue Ergocalciferol [Vitamin D2 (DRISDOL)] 50,000 unit PO Q7D #12 cap traMADol HCL [Conzip] 100 mg PO DIRECTED PRN PRN Reason: Pain amLODIPine BESYLATE 5 mg PO QAM PRN PRN Reason: systolic bp >140 Thyroid,Pork [Dental Office Manager Thyroid] 150 mg PO QAM Turmeric Root Extract [Turmeric] 500 mg PO DAILY Magnesium L-Threonate 1 tab PO DAILY Cannabidiol (Cbd) [Epidiolex] 0 mg PO DIRECTED PRN PRN Reason: Pain Levomefolate Calcium [l-Methylfolate Calcium] 1 tab PO DAILY Metoprolol Succinate [Metoprolol Succinate ER] 25 mg PO DAILY Discontinued Selenium 100 mcg PO DAILY Oregano Oil/Flaxseed Oil [Oregano Oil 50-25 mg Capsule] 1 each PO DAILY Milk Thistle 1 tab PO DAILY Theanine [l-Theanine] 1 tab PO DAILY [place] 1 tab PO DAILY Discharge Medication List Ergocalciferol [Vitamin D2 (DRISDOL)] 50,000 unit PO Q7D #12 cap 06/17/15 [Rx] traMADol HCL [Conzip] 100 mg PO DIRECTED PRN 08/01/16 [History] Thyroid,Pork [Dental Office Manager Thyroid] 150 mg PO QAM 07/18/23 [History] amLODIPine BESYLATE 5 mg PO QAM PRN 07/18/23 [History] Cannabidiol (Cbd) [Epidiolex] 0 mg PO DIRECTED PRN 07/12/24 [History] Levomefolate Calcium [l-Methylfolate Calcium] 1 tab PO DAILY 07/12/24 [History] Magnesium L-Threonate 1 tab PO DAILY 07/12/24 [History] Turmeric Root Extract [Turmeric] 500 mg PO DAILY 07/12/24 [History] Metoprolol Succinate [Metoprolol Succinate ER] 25 mg PO DAILY 07/15/24 [History] Follow up App[facility]ment(s[facility] [place] [facility] - As Needed Patient Instructions/Handouts: Microscopic Colitis (DC) Discharge Disposition: HOME SELF-CARE
[2024-07-15 09:23] VITALS: BP 111/63; PULSE 57; RESP 18
== END 2024-07-15 09:59 | disposition home or self-care (01) ==
LOC: ORWHC2ENDO 07:51
PROVIDERS: ATTEND Surgery Plastic and Reconstructive Surgery
DX: Z12.11 Encounter for screening for malignant neoplasm of colon (principal); K52.839 Microscopic colitis, unspecified; E11.9 Type 2 diabetes mellitus without complications; E78.5 Hyperlipidemia, unspecified; I10 Essential (primary) hypertension; M79.7 Fibromyalgia; Z79.890 Hormone replacement therapy; Z87.891 Personal history of nicotine dependence
CPT/HCPCS: 45380; J2704; 88305